=== PATIENT | female | born 1955 | race American Indian/Alaskan Native ===

== ENCOUNTER 2017-09-19 13:41 | Outpatient (CLI) | payer MEDICARE ==
--- NOTE | 2017-09-21 14:25 | Magnetic Resonance Report ---
BILATERAL BREAST MRI WITHOUT AND WITH CONTRAST: 09/19/17 13:41:00 CLINICAL: Left breast pain and nipple discharge. COMPARISON:09/07/17 [facility] left mammogram and 04/17/17 bilateral mammogram from [facility]. TECHNIQUE: Axial 1.0-mm T1 without, axial high resolution 2.0-mm T2 and axial 1.0-mm dynamic Vibrant high-resolution postcontrast T1 fat saturation sequences on a 1.5 Terrie magnet. The examination was performed with an 8 channel dedicated Sentinelle breast coil. Post processing with CAD and subtraction was performed on an AddThis workstation. 19.0 cc of Multihance was injected without incident via a left antecubital vein 22-gauge INT for the contrast portion of the exam. Consent was obtained prior to the administration of the contrast. FINDINGS: Right: Mild background parenchymal enhancement. No mass or suspicious enhancement. No suspicious right axillary or right internal mammary lymph nodes. Left: Mild background parenchymal enhancement. Lesion 1 is segmental non-Mass enhancement at 12 o'clock 5.8 cm from the nipple measures 2.7 x 1.4 x 0.9 cm. It demonstrates heterogeneous enhancement with mixed kinetics, 70% peak enhancement and 11% type III washout. Lesion 2 is focal non-Mass enhancement at 12:30 o'clock 2.2 cm from the nipple measuring 7.9 x 5.1 x 3.6 mm. It demonstrates heterogeneous enhancement with mixed kinetics, 80% peak enhancement and 32% type III washout. Lesion 3 is focal non-Mass enhancement at 2:30 o'clock 8 cm from the nipple measuring 12.0 x 7.7 x 5.8 mm. It demonstrates heterogeneous enhancement with mixed kinetics, 135% peak enhancement and 5% type III washout. No mass and no other suspicious enhancement. Several benign cysts of the right breast. The largest measures 1.2 cm. No suspicious left axillary or left internal mammary lymph nodes. IMPRESSION: 1. Suspicious non-Mass enhancement of the left breast at three sites. Recommend MRI guided needle biopsy of at least 2 sites. 2. Negative right breast. 3. No suspicious lymph nodes. RIGHT BI-RADS 1 -- Negative LEFT BI-RADS 4 -- Suspicious
== END 2017-09-19 13:42 | disposition home or self-care (01) ==
LOC: SPVIMAG 13:41
PROVIDERS: ATTEND Surgery
DX: N60.01 Solitary cyst of right breast (principal)
CPT/HCPCS: A9577; C8908; 77059

== ENCOUNTER 2017-10-02 08:13 | Outpatient (CLI) | payer MEDICARE ==
--- NOTE | 2017-10-02 11:53 | Mammography Report ---
LEFT DIGITAL DIAGNOSTIC MAMMOGRAM: 10/02/17 08:13:00 CLINICAL: For clip placement immediately status post MRI guided breast biopsy at 2 sites . COMPARISON:09/07/17 FINDINGS: Biopsy clips are identified at the 2 sites that were biopsied today with MRI guidance.The clips are 6 cm apart on the CC view. IMPRESSION: Concordant clip placement status post MRI biopsy at 2 sites. BI-RADS CATEGORY: 4--Suspicious Pathology pending.
--- NOTE | 2017-10-02 12:45 | Magnetic Resonance Report ---
MRI GUIDED VACUUM ASSISTED CORE BIOPSY TWO SITES LEFT BREAST: 10/02/17 CLINICAL: Left nipple discharge and suspicious non-Mass enhancement on recent MRI. COMPARISON: 09/19/17 MRI FINDINGS: Consent for the procedure was obtained. A Vibrant dynamic postcontrast series was performed on a 1.5 Terrie magnet using an 8 channel Sentinelle dedicated breast coil. Two lesions were localized and targeted using [employer] Sentinelle biopsy software. The skin was anesthetized with 1% lidocaine and small dermatotomies were performed. 2% lidocaine was administered for deeper anesthesia. 9-G biopsy was performed with an BeatDeck vacuum assisted device. Imaging demonstrated satisfactory positioning of the probe at the two sites and satisfactory samples were obtained. Clips were deployed at both sites after confirmation of adequate sampling. The probes were removed and hemostasis was achieved with pressure to the sites. Sterile dressings were applied. The patient tolerated the procedure well and there were no apparent complications. A two view mammogram demonstrated successful deployment of both clips. The patient left the department in good condition and was given instructions for wound care and follow-up. IMPRESSION: Uncomplicated MRI biopsy with clip placement two sites left breast.
== END 2017-10-02 08:14 | disposition home or self-care (01) ==
LOC: SPVIMAG 08:13
PROVIDERS: ATTEND Surgery
DX: D24.2 Benign neoplasm of left breast (principal)
CPT/HCPCS: 19085; 19086; 77065; 88305; A9577

== ENCOUNTER 2017-10-19 06:49 | Day surgery (SDC) | payer MEDICARE ==
[~2017-10-19 06:49] MED LIST: LACTATED RINGERS 1,000 ML IV SCH; VERSED IV NR
[2017-10-19] MEDS ORDERED: XYLOCAINE 1% 20 mL ONE (07:08)
[2017-10-19] MEDS ORDERED: NACL BACTERIOSTATIC INFILTRATI ONE (07:27)
[2017-10-19] MEDS ORDERED: ANCEF/STERILE WATER 2 GM/20 ML IV NR (09:00)
[2017-10-19] MEDS ORDERED: XYLOCAINE 1% 20 mL INFILTRATI ONE ×2 (09:14→14:47)
--- NOTE | 2017-10-19 11:33 | Mammography Report ---
NEEDLE LOCALIZATION AND HOOKWIRE PLACEMENT x2 LEFT BREAST:10/19/17 CLINICAL: Known left breast cancer at 2 sites. COMPARISON: 10/02/17 FINDINGS: Using mammographic guidance, 1% lidocaine local anesthesia and sterile technique, a 7.5-cm Quispe hookwire was placed from a lateral approach to localize the more anterior lateral clip which corresponds to an MRI biopsy site. A 5.0-cm Quispe hookwire was then placed from a lateral approach to localize the more posterior lateral clip which corresponds to the initial biopsy site. Hook wires were deployed successfully and an orthogonal image demonstrated satisfactory positioning of the wires. The patient tolerated the procedure well and there were no apparent complications. IMPRESSION: Uncomplicated hookwire placement at 2 sites left breast.
--- NOTE | 2017-10-19 12:01 | Anesthesia Day of Surgery ---
Anesthesia Day of Surgery - Day of Surgery Patient Examined: Yes Patient H&P Reviewed: Yes Patient is NPO: Yes
--- NOTE | 2017-10-19 12:01 | Anesthesia Consultation ---
Anesthesia Consult and Med Hx Date of service: 10/19/17 - Airway Anesthetic Teeth Evaluation: Poor ROM Head & Neck: Adequate Mental/Hyoid Distance: Adequate Mallampati Class: Class III Intubation Access Assessment: Probably Good - Pulmonary Exam CTA: Yes - Cardiac Exam Cardiac Exam: RRR - Pre-Operative Health Status ASA Pre-Surgery Classification: ASA3 Proposed Anesthetic Plan: General, MAC - Cardiovascular System Hx Hypertension: Yes (10 YEARS) - Central Nervous System Hx Psychiatric Problems: Yes (anxiety/depression) - Endocrine Hx Non-Insulin Dependent Diabetes: Yes - Other Systems Hx Alcohol Use: No Hx Substance Use: No Hx Cancer: No Hx Obesity: Yes
[2017-10-19] MEDS ORDERED: XYLOCAINE MPF 2% ONE (13:00)
[2017-10-19] MEDS ORDERED: ZOFRAN ONE (13:00)
[2017-10-19] MEDS ORDERED: SUBLIMAZE ONE (13:00)
[2017-10-19] MEDS ORDERED: DIPRIVAN 10 MG/ML IV ONE (13:00)
[2017-10-19] MEDS ORDERED: MARCAINE 0.25% INFILTRATI ONE (14:46)
[2017-10-19] MEDS ORDERED: NACL 0.9% IR ONE (14:46)
--- NOTE | 2017-10-19 15:01 | Short Stay Summary ---
Short Stay Documentation Date of service: 10/19/17 - History H&P: obtained from office - Allergies and Medications Current Medications: Allergies iodine Allergy (Verified 10/16/17 12:31) Itching codeine Adverse Reaction (Verified 10/19/17 09:19) Itching shellfish derived Adverse Reaction (Verified 10/19/17 09:19) Itching Home Medications Medication Instructions Recorded Confirmed Last Taken Type ALPRAZolam [Xanax TAB] 1 mg PO DAILY 10/16/17 10/16/17 10/19/17 06:20 History Duloxetine HCl [DULoxetine] 60 mg PO DAILY 10/16/17 10/16/17 10/18/17 History Losartan/Hydrochlorothiazide 1 tab PO DAILY 10/16/17 10/16/17 10/19/17 06:20 History [Losartan-Hctz 100-25 mg Tab] Metformin HCl [Glucophage] 1,000 mg PO BID 10/16/17 10/16/17 10/18/17 History Simvastatin [Zocor TAB] 10 mg PO DAILY 10/16/17 10/16/17 10/18/17 History amLODIPine [Norvasc] 5 mg PO DAILY 10/16/17 10/16/17 10/19/17 06:20 History glipiZIDE XL [Glucotrol Xl] 5 mg PO DAILY 10/16/17 10/16/17 10/18/17 History Ibuprofen 800 mg PO Q8HR PRN #30 tablet 10/19/17 Unknown Rx Active Medications Lactated Ringer's (Lactated Ringers) 1,000 mls @ 100 mls/hr IV DIRECT ROXY Last Admin: 10/19/17 09:14 Dose: 100 mls/hr Midazolam HCl (Versed) 2 mg IV PREOP NR Stop: 10/19/17 23:59 - Brief post op/procedure progress note Date of procedure: 10/19/17 Pre-op diagnosis: Left breast cancer of the upper outer quadrant Post-op diagnosis: same Procedure: Left needle localization excisional biopsy of the upper outer quadrant and central breast of two intraductal papillomas Anesthesia: GETA Findings: Radiograph specimen of both specimens with clip and wire present Surgeon: ELIZABETH VILLALOBOS Estimated blood loss: minimal Pathology: list (left breast excisional biopsyx2) Specimen disposition: to lab Condition: stable - Disposition Condition at discharge: Good Disposition: DC-[id number] TO HOME OR SELFCARE Short Stay Discharge Plan Activity: other (no heavy lifting) Diet: regular Wound: other (keep incision clean and dry, may shower in 24 hours; no baths, pools or lakes; do not rub or scrub incision; wear breast binder or sports bra) Follow up with: KADEN ORTEZ MD [Primary Care Provider] - 7 Days ELIZABETH VILLALOBOS MD [Staff Physician] - 7 Days Prescriptions: Ibuprofen 800 mg PO Q8HR PRN #30 tablet PRN Reason: Pain
--- NOTE | 2017-10-19 15:05 | Mammography Report ---
SPECIMEN RADIOGRAPH LEFT BREAST: 10/19/17 06:49:00 CLINICAL: Surgical excision of known cancer. FINDINGS: The targeted lesion with a localizer clip and a hookwire are identified within the specimen. The clip corresponds to the more posterior cancer in the outer breast. IMPRESSION: Excision of the targeted lesion.
--- NOTE | 2017-10-19 15:12 | Operative Report ---
Operative Report Operative Report: Date of Service: October 19, 2017 Preoperative diagnosis: Left central breast intraductal papilloma and left upper outer quadrant intraductal papilloma Postoperative diagnosis: Same Procedure: Left needle localization excisional biopsy of two intraductal papillomas Surgeon: Zoila Diallo MD Anesthesia: General Findings: Left wire and clip present within radiograph specimens of both lesions Complications: None EBL: Minimal Disposition: PACU in good condition Procedure in detail: This is a 62-year-old lady with recent left breast MRI guided biopsy with findings of two intraductal papillomas. Recommendations were to proceed with an excisional biopsy of both areas to rule out malignancy. Patient wished to proceed with the above procedure. Procedure in detail: The patient was taken to radiology for wire placement for localization of area of concern of both areas. Patient was then taken to the operating room. Gen. anesthesia was administered. Left breast was prepped and draped in the normal sterile operative fashion. Both wires were identified. Timeout was performed. An upper outer quadrant breast incision was made with a 15 blade knife and dissection taken down to subcutaneous tissues. First began with central breast excisional biopsy of papilloma with raising of the medial flap with removal of the wire from the skin, followed by raising of the lateral flap, superior flap and inferior flap. The breast area of concern was appropriately removed posteriorly with the aid of the bovie cautery. The wire was not encountered. Specimen was marked and then sent to pathology and radiology; radiograph specimen with wire and clip present. Breast cavity was irrigated and hemostasis was obtained. Attention was then taken towards the left upper outer quadrant papilloma. Through the same incision, first began raising of the lateral flap with removal of the wire from the skin, followed by raising of the medial flap, superior flap and inferior flap. The breast area of concern was appropriately removed posteriorly with the aid of the bovie cautery. The wire was not encountered. Specimen was marked and then sent to pathology and radiology; radiograph specimen with wire and clip present. Breast cavity was irrigated and hemostasis was obtained. The breast cavity was anesthetized with 1% lidocaine mixed with quarter percent Marcaine. The subcutaneous tissues were approximated and closed using interrupted 3-0 Vicryl followed by a running 4-0 Monocryl and skin affix. She tolerated surgery very well and was awaken from anesthesia without any complications and transported to PACU in good condition.
--- NOTE | 2017-10-19 15:15 | Mammography Report ---
SPECIMEN RADIOGRAPH LEFT BREAST: 10/19/17 06:49:00 CLINICAL: Surgical excision of a known cancer.. FINDINGS: The targeted lesion with a localizer clip and a hookwire are identified within the specimen. The clip correlates with the recent MRI a biopsy site. IMPRESSION: Excision of the targeted known cancer.
[2017-10-19] MEDS ORDERED: MOTRIN PO PRN (15:47)
[2017-10-19 16:08] VITALS: BP 111/59
--- NOTE | 2017-10-19 18:24 | Post Anesthesia Evaluation ---
- Post Anesthesia Evaluation Patient Participated: Yes Airway Patent: Yes Stable Respiratory Function: Yes Nausea/Vomiting: No Temp > 96.8F: Yes Pain Manageable: Yes Adequeate Hydration: Yes Anesthesia Complications: No
== END 2017-10-19 17:06 | disposition home or self-care (01) ==
LOC: OR 06:49
PROVIDERS: ATTEND Surgery
DX: D24.2 Benign neoplasm of left breast (principal); N60.82 Other benign mammary dysplasias of left breast; C50.412 Malignant neoplasm of upper-outer quadrant of left female breast; E11.9 Type 2 diabetes mellitus without complications; I10 Essential (primary) hypertension; F41.9 Anxiety disorder, unspecified; F32.9 Major depressive disorder, single episode, unspecified; Z98.890 Other specified postprocedural states; Z80.3 Family history of malignant neoplasm of breast; Z91.041 Radiographic dye allergy status; Z88.5 Allergy status to narcotic agent; Z91.013 Allergy to seafood
CPT/HCPCS: 19125; 19126; 19281; 19282; 36415; 76098; 82962; 84132; 88307; J0690; J2250; J2405; J2704; J3010; J7120